=== PATIENT | female | born 1945 | race Caucasian/White ===

== ENCOUNTER 2018-07-26 15:05 | Observation (INO) | payer MEDICARE, OTHER ==
[~2018-07-26] VITALS: Ht 152.4 cm; Wt 53.6 kg
[~2018-07-26 15:05] MED LIST: Estradiol0.5 MG PO; LEVSOD50 PO; Oxybutynin Chlo10 MG
[2018-07-26 15:43] LABS: BASOPHILS ABSOLUTE AUTO 0.05 K/mm3 (0.00-0.23); BASOPHILS PERCENT AUTO 1 % (0-2); EOSINOPHILS ABSOLUTE AUTO 0.09 K/mm3 (0.00-0.68); EOSINOPHILS PERCENT AUTO 2 % (0-6); Hematocrit 39.9 % (33.0-51.0); Hemoglobin 13.3 g/dL (11.5-16.0); IMMATURE GRAN ABSOLUTE AUTO 0.01 K/mm3 (0.00-0.10); IMMATURE GRAN PERCENT AUTO 0 % (0-1); LYMPHOCYTES ABSOLUTE AUTO 2.22 K/mm3 (0.84-5.20); LYMPHOCYTES PERCENT AUTO 42 % (21-46); MONOCYTES ABSOLUTE AUTO 0.52 K/mm3 (0.16-1.47); MONOCYTES PERCENT AUTO 10 % (4-13); Mean Corpuscular HGB 31.5 pg (26.0-34.0); Mean Corpuscular HGB Conc 33.3 g/dL (31.5-36.5); Mean Corpuscular Volume 95 fL (80-100); Mean Platelet Volume 10.5 fL (9.1-12.4); NEUTROPHILS ABSOLUTE AUTO 2.38 K/mm3 (1.96-9.15); NEUTROPHILS PERCENT AUTO 45 % (41-73); Platelet Count 268 K/mm3 (150-400); RDW Coefficient Variation 12.6 % (11.7-14.2); RDW Standard Deviation 43.2 fL (35.1-46.3); Red Blood Cell Count 4.22 M/mm3 (3.80-5.20); White Blood Cell Count 5.27 K/mm3 (4.00-11.30)
[2018-07-26 16:23] LABS: Alanine Aminotransfer (ALT/SGP 22 U/L (12-78); Albumin, Blood 3.8 g/dL (3.4-5.0); Albumin/Globulin Ratio 1.2 (0.8-1.8); Alk Phos 62 U/L (50-136); Anion Gap 2 mmol/L (6-16); Aspartate Aminotrans (AST/SGOT 21 U/L (12-37); Bilirubin, Total 0.5 mg/dL (0.1-1.0); Blood Urea Nitrogen 11 mg/dL (8-24); CO2, Blood 31 mmol/L (21-32); Calcium, Blood 9.3 mg/dL (8.5-10.1); Chloride, Blood 108 mmol/L (98-108); Creatinine, Blood 0.73 mg/dL (0.40-1.00); Globulin, Blood 3.3 g/dL (2.2-4.0); Glomerular Filtration Rate >60 (60-); Glucose, Blood 91 mg/dL (70-99); Potassium, Blood 3.8 mmol/L (3.5-5.5); Sodium, Blood 141 mmol/L (136-145); Total Protein, Blood 7.1 g/dL (6.4-8.2); Troponin I <0.015 ng/mL (0.000-0.040)
[2018-07-26 19:44] LABS: CHOL/HDL RATIO 3.2; Cholesterol 256 mg/dL (50-200); HDL Cholesterol 81 mg/dL (>39); LDL/HDL RATIO 1.9; Low Density Lipoprotein Chol 155 mg/dL (0-110); Triglycerides 100 mg/dL (30-160); Troponin I <0.015 ng/mL (0.000-0.040); Very Low Density Lipoprot Chol 20 mg/dL (6-32)
[2018-07-27 03:07] LABS: BASOPHILS ABSOLUTE AUTO 0.06 K/mm3 (0.00-0.23); BASOPHILS PERCENT AUTO 1 % (0-2); EOSINOPHILS ABSOLUTE AUTO 0.17 K/mm3 (0.00-0.68); EOSINOPHILS PERCENT AUTO 3 % (0-6); Hematocrit 39.4 % (33.0-51.0); Hemoglobin 13.1 g/dL (11.5-16.0); IMMATURE GRAN PERCENT AUTO 0 % (0-1); LYMPHOCYTES ABSOLUTE AUTO 2.54 K/mm3 (0.84-5.20); LYMPHOCYTES PERCENT AUTO 43 % (21-46); MONOCYTES ABSOLUTE AUTO 0.74 K/mm3 (0.16-1.47); MONOCYTES PERCENT AUTO 13 % (4-13); Mean Corpuscular HGB 31.5 pg (26.0-34.0); Mean Corpuscular HGB Conc 33.2 g/dL (31.5-36.5); Mean Corpuscular Volume 95 fL (80-100); Mean Platelet Volume 10.4 fL (9.1-12.4); NEUTROPHILS ABSOLUTE AUTO 2.42 K/mm3 (1.96-9.15); NEUTROPHILS PERCENT AUTO 41 % (41-73); Platelet Count 242 K/mm3 (150-400); RDW Coefficient Variation 12.5 % (11.7-14.2); RDW Standard Deviation 43.7 fL (35.1-46.3); Red Blood Cell Count 4.16 M/mm3 (3.80-5.20); White Blood Cell Count 5.93 K/mm3 (4.00-11.30)
[2018-07-27 03:34] LABS: Anion Gap 7 mmol/L (6-16); Blood Urea Nitrogen 11 mg/dL (8-24); Bun/Creatinine Ratio 14.6 (12.0-20.0); CO2, Blood 28 mmol/L (21-32); Calcium, Blood 8.8 mg/dL (8.5-10.1); Chloride, Blood 107 mmol/L (98-108); Creatinine, Blood 0.75 mg/dL (0.40-1.00); Glomerular Filtration Rate >60 (60-); Glucose, Blood 91 mg/dL (70-99); Potassium, Blood 3.9 mmol/L (3.5-5.5); Sodium, Blood 142 mmol/L (136-145)
--- NOTE | 2018-07-27 07:20 | NUR ---
a+o, npo for stress test, family in room, saline locked room air walking rounds completed with day staff
--- NOTE | 2018-07-27 11:30 | NUR ---
ADVISED THAT PATIENT RECONCILLED MEDS ARE IN AND NEED TO BE ORDERED. NEEDS THYROID AND ESTROGEN ORDERED. STS WILL LOOK AT.
--- NOTE | 2018-07-27 18:44 | NUR ---
ALERT AND ORIENTED. HAD STRESS TEST TODAY. DENIES C.P OR DISCOMFORT. UNLABORED RESPIRATIONS. TELE ON. BED IN LOW POSITION. CALL LIGHT WITHIN REACH. TM
[2018-07-27] MEDS ORDERED: ASPI81CH PO (19:51)
[2018-07-27] MEDS ORDERED: Prinivil10 MG PO (19:52)
[2018-07-27] MEDS ORDERED: ATOR10 PO (19:52)
[2018-07-27] MEDS ORDERED: PANT40 PO (19:53)
--- NOTE | 2018-07-27 20:10 | NUR ---
DISCHARGE INSTRUCTIONS AND NEW MEDS REVIEWED WITH PATIENT. PT VERBALIZES UNDERSTANDING OF NEW INSTRUCTIONS AND MEDS. NO QUESTIONS OR CONCERNS NOTED. PT DECLINED WHEELCHAIR ESCORT, STATES SHE IS FINE TO WALK OUT ON HER OWN. PT DISCHARGED TO HOME WITH ALL HER PERSONAL BELONGINGS AND DISCHARGE PAPERS. IV ACCESS DISCONTINUED BY NURSE. TRANSPORTATION TO HOME PROVIDED BY FAMILY.
== END 2018-07-27 20:13 | disposition home or self-care (01) ==
LOC: ER 15:05 → MEDS 15:06
PROVIDERS: Physician Assistant; ADMIT Internal Medicine
DX: R07.9 Chest pain, unspecified (principal); I16.0 Hypertensive urgency; I10 Essential (primary) hypertension; E03.9 Hypothyroidism, unspecified; E78.5 Hyperlipidemia, unspecified; J06.9 Acute upper respiratory infection, unspecified; Z79.899 Other long term (current) drug therapy
CPT/HCPCS: 36415; 71046; 78452; 80048; 80053; 80061; 84484; 85025; 93005; 93010; 93017; 99285-25; A9500; J0280; J1650; J2785

== ENCOUNTER 2021-05-19 09:18 | Day surgery (SDC) | payer OTHER ==
[~2021-05-19] VITALS: Ht 152.4 cm; Wt 53.8 kg
[~2021-05-19 09:18] MED LIST changes: +ASPI81CH PO; +ATOR10 PO; +B-12500 MC2 PO; +CALCIUM 600 MG1 EA19 PO; +FISH OIL 1,2001 EAC7 PO; +PANT40 PO; +Prinivil10 MG PO
--- NOTE | 2021-05-19 10:01 | NUR ---
PT AMBULATES TO SDS c STEADY GAIT. Patient states colon prep results clear. Patient confirms NPO status and agrees with scheduled surgery. History, Chart, Medications and Allergies reviewed before start of procedure. Lungs clear T/O to Auscultation. Patient States Post-Procedure ride home has been arranged.
--- NOTE | 2021-05-19 10:31 | NUR ---
05/19/21 1031 Erlinda Fatima History, Chart, Medications and Allergies reviewed before start of procedure. Patient confirms NPO status and agrees with scheduled surgery. 3-LEAD EKG REVIEWED WITH PHYSICIAN PRIOR TO START OF PROCEDURE. MONITOR INTACT WITH CONTINUOUS PULSE OXIMETRY AND INTERMITTENT BP. PATIENT DETERMINED TO BE ASA APPROPRIATE FOR PROPOFOL SEDATION PRIOR TO START OF PROCEDURE BY .
--- NOTE | 2021-05-19 11:34 | NUR ---
Patient up to Ambulate independently. Gait steady. Discharge instructions reviewed with patient. Patient verbalizes understanding. Copy given to patient to take home. Patient States Post-Procedure ride home has been arranged. Discharged via wheelchair to private car for ride home.
== END 2021-05-19 11:34 | disposition home or self-care (01) ==
LOC: ORSCMMR 09:18 → ORD 10:45 → ORSCMMR 11:34
PROVIDERS: Surgery
PROC: 0DJD8ZZ Inspection of Lower Intestinal Tract, Via Natural or Artificial Opening Endoscopic (ICD-10-PCS; principal; 2021-05-19 10:45)
DX: Z12.11 Encounter for screening for malignant neoplasm of colon (principal); Z86.010 Personal history of colon polyps; Z80.0 Family history of malignant neoplasm of digestive organs; E78.5 Hyperlipidemia, unspecified; E03.9 Hypothyroidism, unspecified; Z79.899 Other long term (current) drug therapy
CPT/HCPCS: J2704; J7120